=== PATIENT | female | born 1980 | race Caucasian/White ===

== ENCOUNTER 2020-05-14 15:58 | Emergency (ER) | payer OTHER, MEDICAID ==
--- NOTE | 2020-05-14 16:19 | ER Document Report ---
ED Medical Screen (RME) - General Chief Complaint: Chest Pain Stated Complaint: CHEST PAIN Time Seen by Provider: 05/14/20 16:11 Primary Care Provider: CARLOS HDZ MD [ACTIVE PROVISIONAL STAFF] - Follow up as needed Notes: HPI: Multiple complaints. 39-year-old female who is a G3, at 36 weeks gestation presenting for multiple complaints. 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 Pain does seem to go into the back slightly, no lower abdominal pain or contraction type pain no vaginal bleeding or discharge. Pat ient states that she seems to have a numbness sensation through the left shoulder blade and down the left arm but no anterior chest pain. PHYSICAL EXAMINATION: Gravid uterus palpable mild tenderness in the right upper quadrant on palpation. Mild tachycardia is noted. Patient is alert and oriented answering all questions appropriately moves all extremities equally. Gait is normal. I have greeted and performed a rapid initial assessment of this patient. A comprehensive ED assessment and evaluation of the patient, analysis of test results and completion of medical decision making process will be conducted by an additional ED providers. (DARIEN HICKS) - Related Data Allergies/Adverse Reactions: No Known Allergies Allergy (Verified 05/14/20 16:11) Physical Exam - Vital signs Vitals: Temp Pulse Resp BP Pulse Ox 98.0 F 103 H 20 136/81 H 96 05/14/20 16:06 05/14/20 16:06 05/14/20 16:06 05/14/20 16:06 05/14/20 16:06 Course - Laboratory Result Diagrams: 05/14/20 16:30 05/14/20 16:30 - Vital Signs Vital signs: Temp Pulse Resp BP Pulse Ox 98.0 F 103 H 20 136/81 H 96 05/14/20 16:06 05/14/20 16:06 05/14/20 16:06 05/14/20 16:06 05/14/20 16:06 - Laboratory Laboratory results interpreted by me: 05/14/20 05/14/20 16:30 16:30 Hgb 10.8 L Hct 32.3 L MCH 26.7 L RDW 14.1 H Lymph % (Auto) 11.0 L Absolute Neuts (auto) 8.4 H Seg Neutrophils % 81.5 H Sodium 136.5 L Glucose 126 H Doctor's Discharge - Discharge Referrals: CARLOS HDZ MD [ACTIVE PROVISIONAL STAFF] - Follow up as needed
[2020-05-14 16:50] LABS: ABSOLUTE EOSINOPHILS # (AUTO) 0.1 10^3/uL (0.0-0.6); ABSOLUTE LYMPHOCYTES (AUTO) 1.1 10^3/uL (0.5-4.7); ABSOLUTE MONOCYTES (AUTO) 0.7 10^3/uL (0.1-1.4); ABSOLUTE NEUT (AUTO) 8.4 10^3/uL (1.7-8.2); BASOPHILS % (AUTO) 0.2 % (0-2); EOSINOPHILS % (AUTO) 0.6 % (0-6); HEMATOCRIT 32.3 % (36.0-47.0); HEMOGLOBIN 10.8 g/dL (12.0-15.5); MEAN CORPUSCULAR HEMOGLOBIN 26.7 pg (27.0-33.4); MEAN CORPUSCULAR HGB CONC 33.5 g/dL (32.0-36.0); MEAN CORPUSCULAR VOLUME 80 fl (80-97); MONOCYTES % (AUTO) 6.7 % (3-13); PLATELET COUNT 302 10^3/uL (150-450); RED BLOOD COUNT 4.05 10^6/uL (3.72-5.28); RED CELL DISTRIBUTION WIDTH 14.1 % (11.5-14.0); SEGMENTED NEUTROPHILS % (AUTO) 81.5 % (42-78); TOTAL CELLS COUNTED % (AUTO) 100 %; WHITE BLOOD COUNT 10.4 10^3/uL (4.0-10.5)
[2020-05-14 17:02] LABS: ALBUMIN 3.7 g/dL (3.5-5.0); ALKALINE PHOSPHATASE 117 U/L (38-126); ANION GAP 11 (5-19); ASPARTATE AMINO TRANSFERASE 27 U/L (14-36); BILIRUBIN,DIRECT 0.3 mg/dL (0.0-0.4); BILIRUBIN,TOTAL 0.7 mg/dL (0.2-1.3); BLOOD UREA NITROGEN 12 mg/dL (7-20); CALCIUM 9.6 mg/dL (8.4-10.2); CARBON DIOXIDE 23 mmol/L (22-30); CHLORIDE 103 mmol/L (98-107); GLUCOSE 126 mg/dL (75-110); POTASSIUM 4.1 mmol/L (3.6-5.0); TOTAL PROTEIN 6.9 g/dL (6.3-8.2)
--- NOTE | 2020-05-14 17:59 | RADIOLOGY REPORT (SQ) ---
EXAM DESCRIPTION: U/S ABDOMEN LIMITED W/O DOP IMAGES COMPLETED DATE/TIME: 05/14/2020 5:44 pm REASON FOR STUDY: ruq pain COMPARISON: None. TECHNIQUE: Dynamic and static grayscale images acquired of the abdomen and recorded on PACS. Additio nal selected color Doppler and spectral images recorded. LIMITATIONS: None. FINDINGS: PANCREAS: No masses. Visualized pancreatic duct normal caliber. LIVER: No masses. Echotexture normal. LIVER VASCULATURE: Normal directional flow of the main portal vein and hepatic veins. GALLBLADDER: Multiple shadowing stones. Borderline gallbladder wall thickness, 3.3 mm. No pericholec ystic fluid identified. ULTRASOUND-DETECTED MARTINEZ'S SIGN: Negative. INTRAHEPATIC DUCTS AND COMMON DUCT: CBD and intrahepatic ducts normal caliber. No filling defects. INFERIOR VENA CAVA: Normal flow. AORTA: No aneurysm identified. RIGHT KIDNEY: Normal size. Normal echogenicity. No solid or suspicious masses. No hydronephros is. No calcifications. PERITONEAL AND RIGHT PLEURAL SPACE: No ascites or effusions. OTHER: heart rate 162 beats per minute. IMPRESSION: Multiple shadowing gallstones. Borderline gallbladder wall thickness, 3.3 mm. No perich olecystic fluid identified. TECHNICAL DOCUMENTATION: JOB ID: [id number] [id number] 2010 [employer]- All Rights Reserved Reading location - IP/workstation name: [employer]
--- NOTE | 2020-05-14 18:22 | ER Document Report ---
ED General - General Chief Complaint: Chest Pain Stated Complaint: CHEST PAIN Time Seen by Provider: 05/14/20 16:11 Primary Care Provider: CARLOS HDZ MD [ACTIVE PROVISIONAL STAFF] - Follow up as needed Mode of Arrival: Ambulatory Information source: Patient Notes: 05/14/20 16:13 - Nursing Note by TRIVEDICLAUDE Mariama Num: [id number] : 1980 Patient Age: 39 Pt ambulated to triage without difficulty. Pt sitting up to chair, Resp even & unlabored. Pt able to speak in complete sentences. 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 Pt reports Hx of gall stones. Pt reports being 8 months . Pt denies vaginal bleeding or discharge. PRETTY Hutchins present for triage. Initialized on 05/14/20 16:13 - END OF NOTE ED Medical Screen ([facility]) - General Chief Complaint: Chest Pain Stated Complaint: CHEST PAIN Time Seen by Provider: 05/14/20 16:11 Primary Care Provider: CARLOS HDZ MD [Primary Care Provider] - Follow up as needed Notes: HPI: Multiple complaints. 39-year-old female who is a G3, at 36 weeks gestation presenting for multiple complaints. 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 Pain does seem to go into the back slightly, no lower abdominal pain or contraction type pain no vaginal bleeding or discharge. Patient states that she seems to have a numbness sensation through the left shoulder blade and down the left arm but no anterior chest pain. PHYSICAL EXAMINATION: Gravid uterus palpable mild tenderness in the right upper quadrant on palpation. Mild tachycardia is noted. Patient is alert and oriented answering all questions appropriately moves all extremities equally. Gait is normal. MY NOTES 39 year old at 36 weeks arrives with chief complaint of 10 out of 10 pain positive Eddy sign right upper quadrant radiating to her back and her right scapula. Patient reports she is had gallstones for the last 9 years. She has a 9-year-old and a 4-year-old at home. She advises she has no history of trauma fever chills cough or cold dysuria. Actually spoke with Dr. Yane White and she says she saw this patient this week in the clinic. Patient says she "has seen [place] [facility] [place] and also maternal in [place]." I also spoke with Dr. Jimenez about this patient.. He was coming to the ER anyway about another patient. No surgery will be performed on this patient per Dr. White.. Concerning gallbladder. - HPI Onset: Just prior to arrival Onset/Duration: Sudden, Persistent Quality of pain: Achy Severity: Severe Pain Level: 5 Associated symptoms: denies: Body/muscle aches, Chest pain, Chills, Earache, Leg swelling, Nausea, Sinus pain/drainage, Shortness of breath, Sore throat Exacerbated by: Movement, Walking Relieved by: Standing Similar symptoms previously: Yes Recently seen / treated by doctor: Yes - Related Data Allergies/Adverse Reactions: No Known Allergies Allergy (Verified 05/14/20 16:11) Past Medical History - General Information source: Patient - Social History Smoking Status: Never Smoker Cigarette use (# per day): No Chew tobacco use (# tins/day): No Smoking Education Provided: No Frequency of alcohol use: None Drug Abuse: None Lives with: Family Family History: Reviewed & Not Pertinent Patient has suicidal ideation: No Patient has homicidal ideation: No Physical Exam - Vital signs Vitals: Temp Pulse Resp BP Pulse Ox 98.0 F 103 H 20 136/81 H 96 05/14/20 16:06 05/14/20 16:06 05/14/20 16:06 05/14/20 16:06 05/14/20 16:06 Interpretation: Tachycardic - General General appearance: Alert - HEENT Head: Normocephalic, Atraumatic Eyes: Normal Pupils: PERRL Mouth/Lips: Normal Mucous membranes: Normal Pharynx: Peritonsillar abscess Neck: Normal - Respiratory Respiratory status: No respiratory distress Chest status: Nontender Breath sounds: Normal Chest palpation: Normal - Cardiovascular Rhythm: Tachycardia Heart sounds: Normal auscultation Murmur: No - Abdominal Inspection: Gravid female Distension: Distended Tenderness: Tender, Eddy's sign Organomegaly: No organomegaly - Rectal Hemorrhoids: Other - deferred - Genitourinary Bimanuel exam: Other - deferred - Back Back: Normal - Extremities General upper extremity: Normal inspection, Nontender, Normal color, Normal ROM, Normal temperature General lower extremity: Normal inspection, Nontender, Normal color, Normal ROM, Normal temperature, Normal weight bearing. No: Savanna's sign - Neurological Neuro grossly intact: Yes Cognition: Normal Orientation: AAOx4 Monet Coma Scale Eye Opening: Spontaneous Grayling Coma Scale Verbal: Oriented Monet Coma Scale Motor: Obeys Commands Grayling Coma Scale Total: 15 Speech: Normal Motor strength normal: LUE, RUE, LLE, RLE Sensory: Normal - Psychological Associated symptoms: Normal affect - Skin Skin Temperature: Warm Skin Moisture: Dry Skin Color: Normal Course - Vital Signs Vital signs: Temp Pulse Resp BP Pulse Ox 98.0 F 103 H 20 136/81 H 96 05/14/20 16:06 05/14/20 16:06 05/14/20 16:06 05/14/20 16:06 05/14/20 16:06 - Laboratory Result Diagrams: 05/14/20 16:30 05/14/20 16:30 Laboratory results interpreted by me: 05/14/20 05/14/20 16:30 16:30 Hgb 10.8 L Hct 32.3 L MCH 26.7 L RDW 14.1 H Lymph % (Auto) 11.0 L Absolute Neuts (auto) 8.4 H Seg Neutrophils % 81.5 H Sodium 136.5 L Glucose 126 H - Diagnostic Test Radiology reviewed: Reports reviewed Critical Care Note - Critical Care Note Comments: I discussed this case with Dr. White at 1858 and she advises outpatient pain medicine but no surgery. I also spoke with Dr. Jimenez at 1910 and he advises no surgery at this time but may see him as outpatient. I gave patient and this information at 1945 and she advises she is also been having some nausea and some pruritic skin of her hands and thighs. This may be early symptoms of progesterone or PPP and I will write for Pepcid and Zofran Discharge - Discharge Clinical Impression: Gallstones Qualifiers: Weeks of gestation: 36 weeks Qualified Code(s): Z3A.36 - 36 weeks gestation of Abdominal pain Qualifiers: Abdominal location: right upper quadrant Qualified Code(s): R10.11 - Right upper quadrant pain Condition: Stable Disposition: HOME, SELF-CARE Additional Instructions: Follow-up with OB doctor of choice and also follow-up with Dr. Jimenez surgeon for outpatient follow-up. Take medicines as directed encourage fluids. Prescriptions: Dicyclomine HCl [Bentyl 20 mg Tablet] 20 mg PO QID PRN #40 tablet PRN Reason: Famotidine [Pepcid 20 mg Tablet] 20 mg PO DAILY #12 tablet Referrals: CARLOS HDZ MD [ACTIVE PROVISIONAL STAFF] - Follow up as needed
[2020-05-14] MEDS ORDERED: FENTANYL CITRATE INJ/PF 100 MCG/2 ML AMPUL IV ONE (19:11)
[2020-05-14] MEDS ORDERED: DICYCLOMINE HCL 20 MG TABLET PO ONE (19:24)
[2020-05-14] MEDS ORDERED: HYDROCODONE/ACETAMINOPHEN 5-325 MG (6 TAB/ER DISP) PO PRN (19:26)
[2020-05-14 19:53] LABS: INTERNATIONAL RATION (INR) 0.89; PROTHROMBIN TIME 12.2 SEC (11.4-15.4)
[2020-05-14] MEDS ORDERED: ONDANSETRON ODT 4 MG TAB (6 TAB/ER DISP) PO PRN (19:58)
[2020-05-14 20:38] VITALS: BP 120/92
--- NOTE | 2020-05-14 21:49 | EKG REPORT ---
SEVERITY:- OTHERWISE NORMAL ECG - SINUS TACHYCARDIA BORDERLINE LEFT AXIS DEVIATION : Confirmed by: Loreta Moore MD 14-May-2020 21:48:28
== END 2020-05-14 20:33 | disposition home or self-care (01) ==
LOC: ER 15:58
DX: O99.613 Diseases of the digestive system complicating pregnancy, third trimester (principal); K80.80 Other cholelithiasis without obstruction; O26.893 Other specified pregnancy related conditions, third trimester; R10.11 Right upper quadrant pain; R10.811 Right upper quadrant abdominal tenderness; R00.0 Tachycardia, unspecified; R11.0 Nausea; O99.713 Diseases of the skin and subcutaneous tissue complicating pregnancy, third trimester; L29.9 Pruritus, unspecified; Z3A.36 36 weeks gestation of pregnancy
CPT/HCPCS: 93005; 99285; 96374; 36415; 83690; 85025; 85610; 80053; 84484; 76705; 93010; J3490; J3010

== ENCOUNTER 2020-06-16 05:11 | Inpatient (IN) | payer OTHER, MEDICAID ==
[2020-06-10 13:24] LABS: APPEARANCE,URINE SLIGHTLY-CLOUDY; BILIRUBIN,URINE NEGATIVE (NEGATIVE); COLOR,URINE YELLOW; GLUCOSE, URINE NEGATIVE (NEGATIVE); KETONES,URINE NEGATIVE (NEGATIVE); LEUKOCYTE ESTERASE,URINE NEGATIVE (NEGATIVE); NITRITE,URINE NEGATIVE (NEGATIVE); PROTEIN,URINE NEGATIVE (NEGATIVE); URINE SPECIFIC GRAVITY 1.013; UROBILINOGEN,URINE NEGATIVE mg/dL (<2.0)
[2020-06-10 13:45] LABS: URINE AMPHETAMINES SCREEN NEGATIVE; URINE BARBITURATES SCREEN NEGATIVE; URINE BENZODIAZEPINES SCREEN NEGATIVE; URINE COCAINE SCREEN NEGATIVE; URINE MARIJUANA (THC) SCREEN NEGATIVE; URINE METHADONE SCREEN NEGATIVE; URINE PHENCYCLIDINE SCREEN NEGATIVE
[2020-06-15 10:00] LABS: ABSOLUTE EOSINOPHILS # (AUTO) 0.1 10^3/uL (0.0-0.6); ABSOLUTE LYMPHOCYTES (AUTO) 1.2 10^3/uL (0.5-4.7); ABSOLUTE MONOCYTES (AUTO) 0.7 10^3/uL (0.1-1.4); ABSOLUTE NEUT (AUTO) 5.2 10^3/uL (1.7-8.2); BASOPHILS % (AUTO) 0.3 % (0-2); EOSINOPHILS % (AUTO) 1.5 % (0-6); HEMATOCRIT 31.2 % (36.0-47.0); HEMOGLOBIN 10.4 g/dL (12.0-15.5); LYMPHOCYTES % (AUTO) 16.6 % (13-45); MEAN CORPUSCULAR HEMOGLOBIN 25.3 pg (27.0-33.4); MEAN CORPUSCULAR HGB CONC 33.3 g/dL (32.0-36.0); MEAN CORPUSCULAR VOLUME 76 fl (80-97); MONOCYTES % (AUTO) 9.6 % (3-13); PLATELET COUNT 269 10^3/uL (150-450); RED BLOOD COUNT 4.12 10^6/uL (3.72-5.28); TOTAL CELLS COUNTED % (AUTO) 100 %; WHITE BLOOD COUNT 7.3 10^3/uL (4.0-10.5)
[~2020-06-16 05:11] MED LIST: CEFAZOLIN 2 GM/D5W RTU 2 GM/50 ML RTUPB IV PRN; LACTATED RINGERS 1000 ML IV PRN; RINGERS SOLUTION,LACTATED 1,000 ML IV PRN
[2020-06-16] MEDS ORDERED: FENTANYL CITRATE INJ/PF 100 MCG/2 ML AMPUL ONE (07:28)
[2020-06-16] MEDS ORDERED: MIDAZOLAM 2 MG/2 ML INJ ONE (07:28)
[2020-06-16] MEDS ORDERED: OXYTOCIN 10 UNIT/ML VIAL ONE (07:28)
[2020-06-16] MEDS ORDERED: OXYTOCIN/0.9 % SODIUM CHLORIDE 30 UNIT/500 ML RTUINJ ONE (07:29)
[2020-06-16] MEDS ORDERED: MORPHINE SULFATE 10 MG/ML INJ ONE ×2 (07:29→10:16)
[2020-06-16] MEDS ORDERED: ONDANSETRON HCL INJ/PF 4 MG/2 ML SDV ONE (07:29)
[2020-06-16] MEDS ORDERED: EPHEDRINE SULFATE INJ 50 MG/1 ML AMPULE ONE (08:03)
[2020-06-16] MEDS ORDERED: MORPHINE SULFATE 10 MG/ML INJ IV PRN (08:19)
[2020-06-16] MEDS ORDERED: FENTANYL CITRATE INJ/PF 100 MCG/2 ML AMPUL IV PRN ×3 (08:19)
[2020-06-16] MEDS ORDERED: OXYCODONE-ACETAMINOPHEN 5-325 MG TABLET PO PRN ×2 (08:19)
[2020-06-16] MEDS ORDERED: MEPERIDINE HCL/PF INJ 25 MG/1 ML DISP.SYRIN IV PRN (08:19)
[2020-06-16] MEDS ORDERED: DIPHENHYDRAMINE HCL 50 MG/ML VIAL IV PRN (08:19)
[2020-06-16] MEDS ORDERED: PROMETHAZINE HCL INJ 25 MG/1 ML VIAL IV PRN ×3 (08:19→08:32)
--- NOTE | 2020-06-16 08:29 | PDOC DELIVERY SUMMARY ---
Delivery Summary - Maternal Hx # Term Pregnancies: 1 Hx # Pregnancies: 1 TIMOTEO: 06/22/20 Gestational Age: 39 Risk Factors: Previous Ruptured Membranes: AROM Fluids: Clear - Delivery Labor: Not In Labor Presentation: Vertex Heart Rate Monitoring: Done Pre-Operatively, Externally Support Person Present: Yes Location: OR : Scheduled Placenta: Within Normal Limits Number of Vessels (Cord): 3 Estimated Blood Loss: 1000 cc - Medications Type of Anesthesia:: Spinal
[2020-06-16] MEDS ORDERED: MEASLES,MUMPS&RUBELLA VACC/PF 0.5 ML VIAL SUBCUT PRN (08:32)
[2020-06-16] MEDS ORDERED: RINGERS SOLUTION,LACTATED 1,000 ML IV PRN (08:32)
[2020-06-16] MEDS ORDERED: DIPH/PERTUSS(ACELL)/TETANUS VAC/PF 0.5 ML SYR (>=10YO) IM PRN (08:32)
[2020-06-16] MEDS ORDERED: OXYTOCIN/0.9 % SODIUM CHLORIDE 30 UNIT/500 ML RTUINJ IV PRN (08:32)
[2020-06-16] MEDS ORDERED: MORPHINE SULFATE 10 MG/ML INJ IM PRN (08:32)
[2020-06-16] MEDS ORDERED: ACETAMINOPHEN 325 MG TABLET PO PRN (08:32)
--- NOTE | 2020-06-16 08:32 | Operative Report ---
Operative Report DATE OF SURGERY: 06/16/20 PREOPERATIVE DIAGNOSIS: IUP at term prior desire for sterilization POSTOPERATIVE DIAGNOSIS: Same OPERATION: Repeat low transverse delivery of viable male friend and bilateral tubal occlusion SURGEON: SAUL GROVES ANESTHESIA: Spinal TISSUE REMOVED OR ALTERED: Placenta ESTIMATED BLOOD LOSS: 1000 cc PROCEDURE: The patient was taken to the operating room where spinal anesthesia was obtained and found to be adequate. She was then prepped and draped in the normal sterile fashion and placed in the dorsal supine position with a leftward tilt. A Pfannenstiel skin incision was then made and carried through to the underlying layers of the fascia with the scalpel. The fascia was incised in the midline and the incision extended laterally with the Schreiber scissors. The superior aspect of the fascial incision was then grasped with Darrius clamps elevated and the underlying rectus muscles dissected off bluntly. Attention was then turned to the inferior aspect of the fascial incision which in a similar fashion was grasped, tented up with Hetal clamps, and the rectus muscles dissec kimberly off bluntly. The rectus muscles were then in the midline and the peritoneum at the amount identified and entered bluntly. The peritoneal incision was then extended superiorly and inferiorly with good visualization of the bladder. [The bladder blade was inserted and the vesicouterine peritoneum identified grasped with Slovak pickups and entered sharply with the Metzenbaum scissors. His incision was then extended laterally with the Metzenbaum scissors and a bladder flap created digitally. The bladder blade was then reinserted and the lower uterine segment incised in a transverse fashion with the scalpel. The uterine incision was then extended bluntly. The bladder blade was removed and the infant's head was delivered from cephalic presentation atraumatically. The nose and mouth were suctioned and the cord doubly clamped and cut. And the infant was handed off to waiting pediatricians. The placenta was then delivered manully and the uterus exteriorized and cleared of all clots and debris. The uterine incision was then repaired with 1-0 Vicryl in a running locked fashion. A second layer of the same suture was used to obtain hemostasis via imbrication of the initial layer. Right fallopian tube was occluded in the proximal portion using Filshie clip and procedure repeated on the left. Good purchase of tissue was noted on both tubes. The uterus was returned to the patient's abdomen. The gutters were cleared of all clots and debris. All operative sites were noted to be hemostatic. The fascia was reapproximated with 0 Vicryl in a running fashion from each lateral edge to the midline. The patient tolerated the procedure well. Sponge lap needle and instrument counts are correct -2. 2 g of Ancef were given prior to skin incision. The patient was taken to the recovery area awake and in stable condition.
[2020-06-16] MEDS ORDERED: PROMETHAZINE HCL INJ 25 MG/1 ML VIAL ONE (10:16)
[2020-06-16] MEDS ORDERED: PHENYLEPHRINE HCL INJ/PF 10 MG/1 ML SDV ONE (10:57)
--- NOTE | 2020-06-16 11:24 | Birth Certificate Data ---
Cert Data Datetime Report Generated by CPN: 06/16/2020 11:24 CERTIFICATE DATA Delivery Provider: Ramírez Espana, MD (06/16/2020 08:30:Norma Bebe Guardado, RN) Mother's Height 50b. Height Inches: 62 (06/16/2020 11:05:QS system process) Mother's Weight 51b. Weight at Delivery (lbs): 200 (06/16/2020 11:05:QS system process) Onset of Labor 56a. PROM >12 Hrs: 0.03 (06/16/2020 09:01:QS system process) 57a. Induction of Labor: N/A (06/16/2020 09:01:Norma Guardado RN) 57c. Non-Vertex Presentation A: Vertex (06/16/2020 09:01:Norma Guardado RN) 57d. Steroids - Lung Mat: None (06/16/2020 09:01:Norma Guardado RN) 57d. Steroids - Lung Mat: Not Applicable (06/16/2020 09:01:Norma Guardado RN) 57e. Antibiotics During Labor: 06/16/2020 07:58 (06/16/2020 09::Norma Guardado RN) 57f. Mat Chorio or Temp >100.4: 97.5 (06/16/2020 09:01:Norma Guardado RN) 57g. Moderate/Heavy Meconium: Clear (06/16/2020 09::Norma Guardado RN) 57h. Intolerance of Labor: Repeat Elective (06/16/2020 09:01:Norma Guardado RN) : N/A (06/16/2020 09::Norma Guardado RN) 57i. Epidural/Spinal Anesthesia: Epidural (06/16/2020 09::Norma Guardado RN) Method of Delivery 58a. Forceps - Unsuccessful A: N/A (06/16/2020 09:01:Norma Guardado RN) 58b. Vacuum - Unsuccessful A: Successful (06/16/2020 09:01:Norma Guardado RN) 58c. Presentation at 58c. Presentation at - A : Vertex (06/16/2020 09:01:Norma Guardado RN) 58c. Presentation at - A : N/A (06/16/2020 09:01:Norma Guardado RN) 58c. Presentation at - A : Cephalic (06/16/2020 09:01:Norma Guardado RN) Final Route and Method of Del 58d. Baby A Route/Delivery: (06/16/2020 09:01:Sandy Lo RN) 58e. Trial of Labor Attempted: No (06/16/2020 09:01:Norma Guardado RN) 58e. Trial of Labor Attempted A: N/A (06/16/2020 09:01:Norma Guardado RN) 58e. Trial of Labor Attempted B: N/A (06/16/2020 09:01:Norma Guardado RN) Maternal Morbidity 59b. 3rd or 4th Degree Lacs: None (06/16/2020 09:01:Norma Perezsaadia Guardado RN) Birthweight Baby A: 3330 (06/16/2020 09:01:Sandy Lo RN) 60a. Pounds : 7 (06/16/2020 09:01:QS system process) 60b. Ounces: 5 (06/16/2020 09:01:QS system process) 61. GA at Delivery Baby A: 39.1 (06/16/2020 09:01:Sandy Lo RN) : Full Term- 39- 40.6 Weeks (06/16/2020 09:01:QS system process) 62a. 5 Minute Baby A: 9 (06/16/2020 09:01:QS system process)
--- NOTE | 2020-06-16 11:24 | Delivery Summary ---
Del Sum A-C Datetime Report Generated by CPN: 06/16/2020 11:24 DELIVERY PERSONNEL DELIVERY PERSONNEL: [id number] Delivery Doctor:: Ramírez Espana MD PARTICIPANT ADMINISTRATOR:: Ponce Champion CRNA Labor and Delivery Nurse:: Norma Guardado RN Neonatal Nurse Practitioner:: GIL Chin Nursery Nurse:: Sandy Lo RN Student Observers:: Coral Hwang, student nurse Linda Lundberg student nurse Drawing Box Tender/GRAFFITI CLEANER: Glendy Gray CST Drawing Box Tender/GRAFFITI CLEANER: Elsa Dooley SHIPPING CLERK/ADMIN MATERNAL INFORMATION Delivery Anesthesia: Spinal Medications After Delivery: Pitocin 30 Units in 500ml NS/D5W; Pitocin Drip 20 Units/1000ml NSS Delivery QBL: 569 Maternal Complications: None LABOR SUMMARY EDC: 06/22/2020 00:00 No. Babies in Womb: 1 Attempted: No Labor Anesthesia: Epidural LABOR INFORMATION Reason for Induction: Not Applicable Oxytocin: N/A Group B Beta Strep: negative Antibiotics # of Doses: 1 Antibiotics Time of Last Dose: 06/16/2020 07:58 Name of Antibiotic Given: ancef 2g Steroids Given: None Reason Steroids Not Administered: Not Applicable MEMBRANES Membranes Rupture Method: Artificial Rupture of Membranes: 06/16/2020 08:09 Length of Rupture (hr): 0.03 Amniotic Fluid Color: Clear Amniotic Fluid Amount: Moderate Amniotic Fluid Odor: Normal STAGES OF LABOR Stage 3 hr: 0 Stage 3 min: 1 VAGINAL DELIVERY Episiotomy: None Laceration #1: None Laceration Extension #1: N/A CSECTION DELIVERY Primary Indication: Repeat Elective Secondary Indication: N/A CSection Urgency: Scheduled CSection Incidence: N/A Labor: N/A Elective: N/A CSection Incision: Lower Uterine Transverse Other Sterilization Procedure: Filshie BABY A INFORMATION Infant Delivery Date/Time: 06/16/2020 08:11 Method of Delivery: Nurse Controlled Delivery: No Born in Route : Yes : N/A Forceps: N/A Vacuum Extraction: Successful Shoulder Dystocia : No PRESENTATION/POSITION BABY A Presentation: Cephalic Cephalic Presentation: Vertex Breech Presentation: N/A PLACENTA INFORMATION BABY A Placenta Delivery Time : 06/16/2020 08:12 Placenta Method of Delivery: Manual Removal Placenta Status: Delivered SCORES BABY A Heart Rate 1 min: >100 bpm Resp Effort 1 min: Good Cry Reflex Irritability 1 min: Cough or Sneeze or Pulls Away Muscle Tone 1 min: Active Motion Color 1 min: Body [employer], Extremities Blue SCORE 1 MIN: 9 Heart Rate 5 min: >100 bpm Resp Effort 5 min: Good Cry Reflex Irritability 5 min: Cough or Sneeze or Pulls Away Muscle Tone 5 min: Active Motion Color 5 min: Body [employer], Extremities Blue SCORE 5 MIN: 9 INFORMATION BABY A Gestational Age at Delivery: 39.1 Gestational Status: Full Term- 39- 40.6 Weeks Infant Outcome : Liveborn Condition : Stable Infant Sex: Male IDENTIFICATION BABY A Infant Verification Date/Time: 06/16/2020 08:16 ID Band Number: [id number] Mother's Name Verified: Yes RN Verifying : Shivani Guardado, RN Additional Verifying Personnel: Howard Teresita, RN WEIGHT/LENGTH BABY A Infant Birthweight (gm): 3330 Infant Weight (lb): 7 Weight (oz): 5 Length (in): 19.50 Length (cm): 49.53 CORD INFORMATION BABY A No. Cord Vessels: 3 Nuchal Cord : N/A Cord Blood Taken: Yes-For Storage (Mom's Blood type +) Infant Suction: Mouth ASSESSMENT BABY A Infant Complications: None Physical Findings at Delivery: Within Normal Limits Infant Respirations: Appears Normal Skin to Skin: Yes Transferred To: Nursery BABY B INFORMATION : N/A
[2020-06-16] MEDS: DOCUSATE SODIUM 100 MG CAPSULE PO SCH ×2 (13:29→17:20)
[2020-06-16] MEDS: PRENATAL VITAMIN W DHA CAPSULE PO SCH (13:29)
[2020-06-16] MEDS: OXYCODONE-ACETAMINOPHEN 5-325 MG TABLET PO PRN ×2 (13:31→21:50)
[2020-06-16] MEDS: SIMETHICONE 80 MG TAB.CHEW PO PRN (21:50)
[2020-06-16] MEDS: IBUPROFEN 800 MG TABLET PO SCH (23:42)
[2020-06-17] MEDS ORDERED: LIDOCAINE 0.5% INJ-PF (5 MG/ML) 50 ML SDV SUBCUT PRN (05:00)
[2020-06-17] MEDS: IBUPROFEN 800 MG TABLET PO SCH ×4 (05:44→23:29)
[2020-06-17] MEDS: SIMETHICONE 80 MG TAB.CHEW PO PRN ×2 (05:48→17:50)
[2020-06-17] MEDS: OXYCODONE-ACETAMINOPHEN 5-325 MG TABLET PO PRN ×3 (06:39→23:30)
[2020-06-17 07:18] LABS: HEMATOCRIT 27.2 % (36.0-47.0); HEMOGLOBIN 9.2 g/dL (12.0-15.5); MEAN CORPUSCULAR HEMOGLOBIN 25.8 pg (27.0-33.4); MEAN CORPUSCULAR HGB CONC 33.7 g/dL (32.0-36.0); MEAN CORPUSCULAR VOLUME 77 fl (80-97); PLATELET COUNT 221 10^3/uL (150-450); RED BLOOD COUNT 3.55 10^6/uL (3.72-5.28); RED CELL DISTRIBUTION WIDTH 15.7 % (11.5-14.0); WHITE BLOOD COUNT 9.6 10^3/uL (4.0-10.5)
[2020-06-17] MEDS ORDERED: INFLUENZA QUAD (6MOS+) 2020-21 VAC 0.5 ML SYR IM ONE (08:00)
--- NOTE | 2020-06-17 09:24 | PDOC PROGRESS REPORT ---
Subjective-OB Progress Note for:: 06/17/20 Subjective: Doing well, c/o of numbness in left hand, since surgery, OOB , voiding, feeling gas but not passing any gas, eating well, no nausea Physical Exam (OB) Vital Signs: Temp Pulse Resp BP Pulse Ox 98.0 F 80 18 107/66 98 06/17/20 08:07 06/17/20 08:00 06/17/20 08:00 06/17/20 08:00 06/17/20 08:00 Intake & Output 06/16/20 06/17/20 06/18/20 06:59 06:59 06:59 Intake Total 1200 Output Total 3050 Balance -1850 Weight 90.72 kg - PIH/Pre-Eclampsia DTR's: 1 + Clonus: Negative Headache: Absent Epigastric Pain: No Visual Changes: No - Dressing Removed: No Incision: Dressing Closure Type: pressure - Bilateral Tubal Ligation Dressing Removed: No Site: Dressing - Maternal Morbidity 59. Maternal Morbidity (serious complications experinced by the mother associated with labor and delivery: None of the above - Lochia Lochia Amount: Scant < 10 ml Lochia Color: Rubra/Red - Abdomen Description: Soft Hernia Present: No Fundal Description: Firm Fundal Height: u/u - u/2 Objective-Diagnostic Laboratory: 06/17/20 06:42 06/17/20 06:42 WBC 9.6 RBC 3.55 L Hgb 9.2 L Hct 27.2 L MCV 77 L MCH 25.8 L MCHC 33.7 RDW 15.7 H Plt Count 221 Assessment and Plan(PN) - Assessment and Plan (1) Grand multiparity Is this a current diagnosis for this admission?: Yes (2) Tubal ligation status Is this a current diagnosis for this admission?: Yes (3) AMA (advanced maternal age) multigravida 35+ Qualifiers: Trimester: first trimester Qualified Code(s): O09.521 - Supervision of elderly multigravida, first trimester Is this a current diagnosis for this admission?: Yes (4) S/P repeat low transverse Is this a current diagnosis for this admission?: Yes - Time Spent with Patient Time with patient: Less than 15 minutes Medications reviewed and adjusted accordingly: Yes - Disposition Anticipated Discharge Disposition: Home, Self Care Anticipated Discharge Timeframe: within 24 hours
[2020-06-17] MEDS: PRENATAL VITAMIN W DHA CAPSULE PO SCH (09:41)
[2020-06-17] MEDS: DOCUSATE SODIUM 100 MG CAPSULE PO SCH ×2 (09:41→17:49)
[2020-06-17] MEDS ORDERED: IBUPROFEN 800 MG TABLET PO SCH (12:00)
[2020-06-18] MEDS: OXYCODONE-ACETAMINOPHEN 5-325 MG TABLET PO PRN ×2 (05:55→10:24)
[2020-06-18] MEDS: IBUPROFEN 800 MG TABLET PO SCH ×2 (05:56→12:38)
[2020-06-18] MEDS: DOCUSATE SODIUM 100 MG CAPSULE PO SCH (10:21)
[2020-06-18] MEDS: PRENATAL VITAMIN W DHA CAPSULE PO SCH (10:21)
[2020-06-18] MEDS ORDERED: BUTALB/ACETAMINOPHEN/CAFFEINE 1 TAB EACH PO PRN (11:28)
--- NOTE | 2020-06-18 11:28 | PDOC PROGRESS REPORT ---
Subjective-OB Progress Note for:: 06/18/20 Subjective: c/o of headache , worse when she sits up but will not lay down, still c/o of numbness in left hand and fingers, fob in room ready to take her home, incisional pain controlled, scant bleeding Physical Exam (OB) Vital Signs: Temp Pulse Resp BP Pulse Ox 97.7 F 75 18 113/65 100 06/18/20 07:18 06/18/20 07:18 06/18/20 07:18 06/18/20 10:31 06/18/20 07:18 Intake & Output 06/17/20 06/18/20 06/19/20 06:59 06:59 05:59 Intake Total 1200 Output Total 3050 Balance -1850 - PIH/Pre-Eclampsia DTR's: 2 + Clonus: Negative Headache: Absent Epigastric Pain: No Visual Changes: No - Dressing Removed: Yes Incision: Well Approximated Closure Type: Surgical Glue - Bilateral Tubal Ligation Dressing Removed: No Site: Dressing - Maternal Morbidity 59. Maternal Morbidity (serious complications experinced by the mother associated with labor and delivery: None of the above - Lochia Lochia Amount: Scant < 10 ml Lochia Color: Rubra/Red - Abdomen Description: Tender, Soft Hernia Present: No Fundal Description: Firm, Midline Fundal Height: u/u - u/2 Objective-Diagnostic Laboratory: 06/17/20 06:42 Assessment and Plan(PN) - Assessment and Plan (1) Grand multiparity Is this a current diagnosis for this admission?: Yes (2) Tubal ligation status Is this a current diagnosis for this admission?: Yes (3) AMA (advanced maternal age) multigravida 35+ Qualifiers: Trimester: first trimester Qualified Code(s): O09.521 - Supervision of elderly multigravida, first trimester Is this a current diagnosis for this admission?: Yes (4) S/P repeat low transverse Is this a current diagnosis for this admission?: Yes - Time Spent with Patient Time with patient: Less than 15 minutes Medications reviewed and adjusted accordingly: Yes - Disposition Anticipated Discharge Disposition: Home, Self Care - called anesthesia about headache, increase fluids and try Fioricet, home in am Anticipated Discharge Timeframe: within 24 hours
[2020-06-18 14:48] VITALS: BP 113/65
--- NOTE | 2020-06-18 15:15 | PDOC DISCHARGE SUMMARY ---
Impression - Admit/DC Date/PCP Admission Date/Primary Care Provider: 06/16/20 05:11 [facility] Discharge Date: 06/18/20 - Discharge Diagnosis (1) Grand multiparity Is this a current diagnosis for this admission?: Yes (2) Tubal ligation status Is this a current diagnosis for this admission?: Yes (3) AMA (advanced maternal age) multigravida 35+ Is this a current diagnosis for this admission?: Yes (4) S/P repeat low transverse Is this a current diagnosis for this admission?: Yes - Additional Information Discharge Diet: As Tolerated, Regular Discharge Activity: Activity As Tolerated, No Lifting Over 10 Pounds, No Lifting/Push/Pulling, Pelvic Rest, No tub bath [facility]: [facility] [Provider Group] (Please call and schedule a 1 week f/u at [facility]. ) Prescriptions: Oxycodone HCl/Acetaminophen [Percocet 5-325 mg Tablet] 1 tab PO Q4HP PRN #20 tablet PRN Reason: Ibuprofen [Motrin 800 mg Tablet] 800 mg PO Q6 #30 tablet Home Medications: Iron 18 mg PO DAILY 06/10/20 Prenat 115/Iron Fum/Folic/Dss [ 19 Tablet] 1 each PO DAILY 06/10/20 Ibuprofen [Motrin 800 mg Tablet] 800 mg PO Q6 #30 tablet 06/17/20 Oxycodone HCl/Acetaminophen [Percocet 5-325 mg Tablet] 1 tab PO Q4HP PRN #20 tablet 06/17/20 HPI Gestational Age: 39 Reason(s) for Admission: Ceasarean Section-Repeat, Tubal Ligation, Advanced Maternal Age Procedures: NST, Ultrasound Intrapartum Procedure(s): : Low Cervical, Transverse Hospital Course Hospital Course: routine, numbness left hand and headache 57. Maternal Morbidity (serious complications experinced by the mother associated with labor and delivery: None of the above Results Laboratory Results: WBC 9.6 10^3/uL (4.0-10.5) 06/17/20 06:42 RBC 3.55 10^6/uL (3.72-5.28) L 06/17/20 06:42 Hgb 9.2 g/dL (12.0-15.5) L 06/17/20 06:42 Hct 27.2 % (36.0-47.0) L 06/17/20 06:42 MCV 77 fl (80-97) L 06/17/20 06:42 MCH 25.8 pg (27.0-33.4) L 06/17/20 06:42 MCHC 33.7 g/dL (32.0-36.0) 06/17/20 06:42 RDW 15.7 % (11.5-14.0) H 06/17/20 06:42 Plt Count 221 10^3/uL (150-450) 06/17/20 06:42 Lymph % (Auto) 16.6 % (13-45) 06/15/20 09:15 [place] % (Auto) 9.6 % (3-13) 06/15/20 09:15 Eos % (Auto) 1.5 % (0-6) 06/15/20 09:15 Baso % (Auto) 0.3 % (0-2) 06/15/20 09:15 Absolute Neuts (auto) 5.2 10^3/uL (1.7-8.2) 06/15/20 09:15 Absolute Lymphs (auto) 1.2 10^3/uL (0.5-4.7) 06/15/20 09:15 Absolute Monos (auto) 0.7 10^3/uL (0.1-1.4) 06/15/20 09:15 Absolute Eos (auto) 0.1 10^3/uL (0.0-0.6) 06/15/20 09:15 Absolute Basos (auto) 0.0 10^3/uL (0.0-0.2) 06/15/20 09:15 Seg Neutrophils % 72.0 % (42-78) 06/15/20 09:15 Platelet Estimate Cancelled 06/10/20 12:32 Urine Color YELLOW 06/10/20 12:20 Urine Appearance SLIGHTLY-CLOUDY 06/10/20 12:20 Urine pH 6.0 (5.0-9.0) 06/10/20 12:20 Ur Specific [place] 1.013 06/10/20 12:20 Urine Protein NEGATIVE mg/dL (NEGATIVE) 06/10/20 12:20 Urine Glucose (UA) NEGATIVE mg/dL (NEGATIVE) 06/10/20 12:20 Urine Ketones NEGATIVE mg/dL (NEGATIVE) 06/10/20 12:20 Urine Blood NEGATIVE (NEGATIVE) 06/10/20 12:20 Urine Nitrite NEGATIVE (NEGATIVE) 06/10/20 12:20 Urine Bilirubin NEGATIVE (NEGATIVE) 06/10/20 12:20 Urine Urobilinogen NEGATIVE mg/dL (<2.0) 06/10/20 12:20 Ur Leukocyte Esterase NEGATIVE (NEGATIVE) 06/10/20 12:20 Urine WBC (Auto) 4 /HPF 06/10/20 12:20 Urine RBC (Auto) 1 /HPF 06/10/20 12:20 Urine Bacteria (Auto) 1+ /HPF 06/10/20 12:20 Squamous Epi Cells Auto 8 /HPF 06/10/20 12:20 Urine Mucus (Auto) RARE /LPF 06/10/20 12:20 Urine Ascorbic Acid NEGATIVE (NEGATIVE) 06/10/20 12:20 Urine Opiates Screen NEGATIVE 06/10/20 12:20 Urine Methadone Screen NEGATIVE 06/10/20 12:20 Ur Barbiturates Screen NEGATIVE 06/10/20 12:20 Ur Phencyclidine Scrn NEGATIVE 06/10/20 12:20 Ur Amphetamines Screen NEGATIVE 06/10/20 12:20 U Benzodiazepines Scrn NEGATIVE 06/10/20 12:20 Urine Cocaine Screen NEGATIVE 06/10/20 12:20 U Marijuana (THC) Screen NEGATIVE 06/10/20 12:20 COVID-19 Source See comment 06/10/20 12:20 COVID-19 (NIVIA) Not Detected (Not Detect) 06/10/20 12:20 Slides for Path Review Cancelled 06/10/20 12:32 Blood Type A POSITIVE 06/15/20 09:15 Antibody Screen NEGATIVE 06/15/20 09:15 Plan Health Concerns: routine Plan of Treatment: discharge home, headache improved with Fioricet, rev S& S to report, increase fluids Goals: no complications Time Spent: Less than 30 Minutes
== END 2020-06-18 15:50 | disposition home or self-care (01) | DRG 785 ==
LOC: 2S 05:11
PROVIDERS: ADMIT Obstetrics & Gynecology Gynecology; ATTEND Obstetrics & Gynecology Gynecology
PROC: 10D00Z1 Extraction of Products of Conception, Low, Open Approach (ICD-10-PCS; principal; 2020-06-16)
PROC: 0UL70CZ Occlusion of Bilateral Fallopian Tubes with Extraluminal Device, Open Approach (ICD-10-PCS; 2020-06-16)
PROC: 3E0234Z Introduction of Serum, Toxoid and Vaccine into Muscle, Percutaneous Approach (ICD-10-PCS; 2020-06-18)
DX: O34.219 Maternal care for unspecified type scar from previous cesarean delivery (principal); Z30.2 Encounter for sterilization; O99.214 Obesity complicating childbirth; E66.9 Obesity, unspecified; Z3A.39 39 weeks gestation of pregnancy; Z91.040 Latex allergy status; Z23 Encounter for immunization
CPT/HCPCS: 1961; 36415; 59025; 80307; 81001; 85025; 85027; 86850; 86900; 86901; 87635; 90471; 90686; 94760; 94799; C9803; G0008; J2250; J2270; J2370; J2405; J2550; J2590; J3010; J3490; J7120